=== PATIENT | female | born 1960 | race African-American/Black ===

== ENCOUNTER 2021-10-13 21:56 | Emergency (ER) | payer OTHER ==
[~2021-10-13] VITALS: Ht 167.6 cm; Wt 81.6 kg
[~2021-10-13 21:56] MED LIST: ACET-868 PO; ASPI-992 PO; BISM-126 PO; DOCU100C36 PO; HYDR1TAB70 PO; MAG-5 PO; [UNRECOGNIZED DRUG - CODE] PO
[2021-10-13 22:21] VITALS: BP 130/99
--- NOTE | 2021-10-13 23:05 | NUR ---
Shiva novak in [facility] - 10/13/21 at 2305 by LUCAS CALLED FOR BLOOD WORK, NOT THERE.
--- NOTE | 2021-10-13 23:05 | NUR ---
PT NOT IN ROOM.
--- NOTE | 2021-10-13 23:08 | NUR ---
Patient eloped from facility. ER MD notified.
== END 2021-10-13 23:30 | disposition left against medical advice (07) ==
LOC: ER 21:59
DX: Z53.21 Procedure and treatment not carried out due to patient leaving prior to being seen by health care provider (principal)